=== PATIENT | female | born 1985 | race Caucasian/White ===

== ENCOUNTER 2019-04-12 14:39 | Inpatient (IN) ==
[2019-04-12 15:08] LABS: URINE SOURCE VOIDED
[2019-04-12 15:13] LABS: BILIRUBIN URINE NEGATIVE (NEGATIVE); BLOOD URINE NEGATIVE (NEGATIVE); GLUCOSE URINE NEGATIVE (NEGATIVE); KETONE URINE TRACE mg/dL (NEGATIVE); LEUKOCYTES URINE TRACE (NEGATIVE); NITRITE URINE NEGATIVE (NEGATIVE); PH URINE 6.5; PROTEIN URINE 1+(30 mg/dL) mg/dL (NEGATIVE); UROBILINOGEN URINE 4 mg/dL
[2019-04-12 15:14] LABS: CLARITY SL. CLOUDY (CLEAR); COLOR YELLOW
[2019-04-12] MEDS ORDERED: D5 LR 1,000 ML IV SCH (15:15)
[2019-04-12 15:43] LABS: HEMATOCRIT 33.1 % (37.0-47.0); HEMOGLOBIN 10.9 g/dL (12.0-16.0); RBC 3.92 XMIL (4.2-5.4)
[2019-04-12 15:44] LABS: BASO# 0.01 X1000 (0.0-0.2); BASO% 0.1 % (0.0-0.8); EOS# 0.09 X1000 (0.0-0.7); EOS% 0.9 % (0.0-10.0); IMM GRAN# 0.03 X1000 (0.0-0.04); IMM GRAN% 0.3 % (0.0-0.5); LYMPH# 2.11 X1000 (1.2-3.4); LYMPH% 22.2 % (20.5-51.1); MCH 27.8 PG (27-31); MCHC 32.9 g/dL (33-37); MCV 84.4 FL (81-99); MONO# 0.75 X1000 (0.11-0.59); MONO% 7.9 % (1.7-9.3); MPV 9.8 FL (7.4-10.4); NEUT# 6.51 X1000 (1.4-6.5); NEUT% 68.6 % (42.2-75.2); PLT 215 X1000 (130-400); RDW 15.8 % (11.5-14.5)
[2019-04-12] MEDS ORDERED: AMBIEN PO PRN (16:50)
[2019-04-12] MEDS ORDERED: LR 1,000 ML IV SCH (17:00)
[2019-04-12 17:16] LABS: UR AMPHETAMINES QUAL NONE DETECTED (NONE DETECT); UR BARBITUATES QUAL NONE DETECTED (NONE DETECT); UR BENZODIAZEPIN QUAL PRESUMPTIVE POSITIVE (NONE DETECT); UR CANNABINOIDS QUAL NONE DETECTED (NONE DETECT); UR COCAINE QUAL NONE DETECTED (NONE DETECT); UR METHADONE QUAL NONE DETECTED (NONE DETECT); UR METHAMPHETAMINE QUAL NONE DETECTED (NONE DETECT); UR OPIATES QUAL NONE DETECTED (NONE DETECT); UR OXYCODONE QUAL NONE DETECTED (NONE DETECT); UR PCP QUAL NONE DETECTED (NONE DETECT); UR PROPOXYPHENE QUAL NONE DETECTED (NONE DETECT); UR TCA QUAL NONE DETECTED (NONE DETECT)
[2019-04-12] MEDS ORDERED: BICITRA PO ONE (18:30)
[2019-04-12] MEDS ORDERED: TYLENOL PO ONE (18:35)
[2019-04-12] MEDS: ZOFRAN IV PRN (18:45)
[2019-04-13] MEDS: ZOFRAN IV PRN (02:25)
[2019-04-13] MEDS ORDERED: TYLENOL PO ONE (02:30)
[2019-04-13] MEDS ORDERED: XANAX PO ONE (03:27)
[2019-04-13] MEDS ORDERED: DIPRIVAN 1% ONE ×2 (03:33→06:52)
--- NOTE | 2019-04-13 03:57 | HISTORY AND PHYSICAL ---
HISTORY OF PRESENT ILLNESS: The patient is a 33-year-old female, G3, P1, A1 who will be 39 weeks gestation on 04/13/2019 . The patient has a previous vaginal delivery but had a 4th degree repair that she still has issues with and has requested for elective . Patient counseled about the risks of surgery including bleeding, infection, bowel or bladder injury. PAST MEDICAL HISTORY: Significant for ADD, anxiety, history of genital herpes no outbreak during this . PAST SURGICAL HISTORY: Significant for spinal fusion, dental surgery, D and C and right leg surgery. PAST OB HISTORY: G3, P1, A1, spontaneous vaginal delivery x1, spontaneous AB x1 that did require D and C. 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 FAMILY HISTORY: Significant for high blood pressure, leukemia, multiple myeloma and colon cancer. REVIEW OF SYSTEMS: All systems reviewed and noncontributory. MEDICATIONS: Iron, Xanax, tramadol, vitamin. ALLERGIES: Penicillin. PHYSICAL EXAM: Height 5 feet 9, weight 204-1/2 pounds, blood pressure 124/79, pulse of 72, respirations 18 and the heart rate 125. HEENT: Pupils equal, round, reactive to light and accommodation. Extraocular movements intact. Oropharynx clear. NECK: Supple. No thyromegaly. LUNGS: Clear to auscultation. HEART: Regular rate and rhythm. ABDOMEN: Gravid, nontender. EXTREMITIES: No clubbing, cyanosis, or edema noted. NEURO: Cranial nerves 2-12 grossly intact. Motor 5/5. ASSESSMENT/PLAN: 33-year-old female, G3, P1, A1 who will be 39 weeks gestation on 04/13/2019. Patient has requested elective section due to her history of traumatic delivery which included 4th degree repair. Patient counseled about the risks of surgery including bleeding, infection, bowel or bladder injury. Patient scheduled for surgery on 04/13/2019. cc: Vidal Graham III, MD
[2019-04-13] MEDS ORDERED: CLINDAMYCIN 900 MG/D5W 900 MG/50 ML IVPB IV ONE (05:30)
[2019-04-13] MEDS ORDERED: BICITRA PO ONE (06:00)
[2019-04-13] MEDS ORDERED: XYLOCAINE-MPF 2% ONE (06:40)
[2019-04-13] MEDS ORDERED: ROBINUL ONE (06:40)
[2019-04-13] MEDS ORDERED: PITOCIN ONE (06:40)
[2019-04-13] MEDS ORDERED: QUELICIN (DOSE) ONE (06:40)
[2019-04-13] MEDS ORDERED: SODIUM CHLORIDE 0.9% 10 ML ONE (06:50)
[2019-04-13] MEDS ORDERED: EPHEDRINE ONE (06:50)
[2019-04-13] MEDS ORDERED: FENTANYL ONE (06:54)
[2019-04-13] MEDS ORDERED: VERSED ONE (07:25)
[2019-04-13] MEDS ORDERED: ZOFRAN ONE (07:25)
[2019-04-13] MEDS ORDERED: MORPHINE ONE ×2 (07:29→07:32)
[2019-04-13] MEDS ORDERED: NEO-SYNEPHRINE ONE (07:42)
[2019-04-13] MEDS ORDERED: MYLICON PO PRN (07:59)
[2019-04-13] MEDS ORDERED: DEMEROL PO PRN ×2 (07:59)
[2019-04-13] MEDS ORDERED: NORCO-5 PO PRN (07:59)
[2019-04-13] MEDS ORDERED: HYDROXYZINE IM PRN (07:59)
[2019-04-13] MEDS ORDERED: ATARAX PO PRN (07:59)
[2019-04-13] MEDS ORDERED: PITOCIN 20 UNITS/NS 20 UNITS/1,000 ML IV.SOLN IV ONE (07:59)
[2019-04-13] MEDS ORDERED: PITOCIN IM PRN (07:59)
[2019-04-13] MEDS ORDERED: PHENERGAN IM PRN (07:59)
[2019-04-13] MEDS ORDERED: DULCOLAX PR PRN (07:59)
[2019-04-13] MEDS ORDERED: AMBIEN PO PRN (07:59)
[2019-04-13] MEDS ORDERED: BOOSTRIX VACCINE IM ONE (07:59)
[2019-04-13] MEDS ORDERED: DEMEROL IM PRN (07:59)
[2019-04-13] MEDS ORDERED: M-M-R II VACCINE SUBQ ONE (07:59)
[2019-04-13] MEDS: TORADOL IV SCH ×3 (08:30→20:14)
[2019-04-13] MEDS ORDERED: NARCAN IV PRN (08:30)
[2019-04-13] MEDS ORDERED: ZOFRAN IV PRN (08:30)
[2019-04-13] MEDS ORDERED: BENADRYL IV PRN (08:30)
[2019-04-13] MEDS: MORPHINE PCA IV PRN ×3 (08:42→20:13)
[2019-04-13] MEDS: XANAX PO PRN ×2 (09:29→18:55)
[2019-04-13] MEDS: MYLICON PO SCH ×4 (10:15→20:27)
--- NOTE | 2019-04-13 13:02 | OPERATIVE NOTE ---
PROCEDURE DATE: 04/13/2019 PREOPERATIVE DIAGNOSIS: Intrauterine (IUP) at 39 and 0/7th weeks with history of fourth degree midline episiotomy, who expressed desire for elective . POSTOPERATIVE DIAGNOSIS: Intrauterine (IUP) at 39 and 0/7th weeks with history of fourth degree midline episiotomy, who expressed desire for elective with operative delivery of a female 8 pounds 13 ounces. Apgars of 8 and 9 at 07:13 on 04/13/2019. PROCEDURE: Primary low-transverse . SURGEON: Vidal Graham III, MD BEHAVIORAL ANALYST: Esdras ANESTHESIA: General, Fox. FINDINGS: Normal-appearing uterus, tubes, and ovaries. COMPLICATIONS: None. ESTIMATED BLOOD LOSS: 600 mL. SPECIMENS REMOVED: None. DRAINS: Steiner to straight drain. COUNTS: All counts were correct x3. INDICATIONS: Patient is a 33-year-old white female, G3, P1, A1 at 39 weeks gestation and has a history of a traumatic 4th degree midline episiotomy with her first delivery and expressed desire for elective . Patient counseled about the risks of surgery including bleeding, infection, bowel or bladder injury. DESCRIPTION OF PROCEDURE: The patient was taken to Labor and Delivery OR. She had general anesthesia placed, the patient had has had a history of spinal fusion plus other back surgeries that would make it difficult to do a spinal anesthetic. Therefore, general was preferred at this time. General anesthesia was employed and the patient prepped and draped in a sterile fashion with placement of a Steiner catheter. A Pfannenstiel skin incision was made using a scalpel, this was carried down sharply to the fascia layer, small amber was made in the rectus fascia. Fascial incision was extended bilaterally by curved Guevara scissors and pickups, and then blunt and sharp dissection of the rectus fascia was performed superiorly and inferiorly. Rectus muscles were then divided midline, peritoneal layer was entered bluntly. The bladder reflection was created using Metzenbaum scissors. Bladder blade was placed into the abdominal cavity and then a transverse incision was made on the lower uterine segment using scalpel. Clear fluid was noted upon entry into the uterine cavity and then the hysterotomy incision was extended bilaterally by the surgeon's fingers. The head was then elevated toward the hysterotomy site and with gentle fundal pressure, the head was delivered atraumatically. Bulb suction of nose and mouth, then the rest the body was delivered atraumatically with gentle fundal pressure. Umbilical cord was clamped twice and cut. was handed to the nurse in attendance for delivery. Cord blood sample was obtained at this time. Placenta was then manually extracted. The uterus was then exteriorized. Wet lap was placed around the uterus. Dry lap was then used to curette the uterine cavity of clots and debris. Uterine incision was then closed using 0 chromic in a running, locking fashion. A small area of oozing was noted on the left corner, made hemostatic with a [id number] stitch of 0 chromic. At this point in time, the posterior cul-de-sac was then irrigated copiously. Then the uterus was replaced back into the abdominal cavity. The pericolic gutters were then cleansed using moist lap sponges. The uterine incision and bladder reflection were inspected and good hemostasis was noted. The peritoneal incision was then closed using a 2-0 chromic in a running fashion. The rectus muscle was then reapproximated using interrupted stitches of 2-0 chromic. The fascia layer was then closed using 0 PDS in a running fashion x1. Subcutaneous layer was irrigated copiously electrocautery was then used to obtain hemostasis. The skin was then reapproximated using bertha. Patient tolerated the procedure well, was taken to recovery room in stable condition. All counts were correct x3. cc: Vidal Graham III, MD
[2019-04-13] MEDS: PITOCIN 10 UNITS/NS 1,000 ML IV SCH ×2 (15:56→23:18)
[2019-04-13] MEDS: PERICOLACE PO SCH (20:15)
[2019-04-14] MEDS: ZOFRAN IV PRN (02:32)
[2019-04-14] MEDS: TORADOL IV SCH (02:35)
[2019-04-14] MEDS: MORPHINE PCA IV PRN (03:49)
[2019-04-14] MEDS: XANAX PO PRN ×4 (04:30→21:30)
[2019-04-14 05:48] LABS: BASO# 0.02 X1000 (0.0-0.2); BASO% 0.2 % (0.0-0.8); EOS# 0.17 X1000 (0.0-0.7); EOS% 2.1 % (0.0-10.0); HEMATOCRIT 28.9 % (37.0-47.0); HEMOGLOBIN 9.3 g/dL (12.0-16.0); IMM GRAN# 0.02 X1000 (0.0-0.04); IMM GRAN% 0.2 % (0.0-0.5); LYMPH# 1.31 X1000 (1.2-3.4); LYMPH% 16.1 % (20.5-51.1); MCH 27.6 PG (27-31); MCHC 32.2 g/dL (33-37); MCV 85.8 FL (81-99); MONO# 0.56 X1000 (0.11-0.59); MONO% 6.9 % (1.7-9.3); MPV 9.6 FL (7.4-10.4); NEUT# 6.05 X1000 (1.4-6.5); NEUT% 74.5 % (42.2-75.2); PLT 201 X1000 (130-400); RBC 3.37 XMIL (4.2-5.4); RDW 16.4 % (11.5-14.5); WBC 8.13 X1000 (4.8-10.8)
[2019-04-14] MEDS ORDERED: D/C PCA XX ONE (07:11)
[2019-04-14] MEDS ORDERED: SALINE LOCK IV FLUID XX ONE (07:13)
[2019-04-14] MEDS ORDERED: LR 1,000 ML IV SCH (07:59)
[2019-04-14] MEDS: PRECARE PO SCH (08:17)
[2019-04-14] MEDS: FERROUS SULFATE PO SCH (08:17)
[2019-04-14] MEDS: MYLICON PO SCH ×4 (08:17→21:29)
[2019-04-14] MEDS: NORCO-10 PO PRN ×4 (08:18→19:10)
[2019-04-14] MEDS: MOTRIN PO PRN ×2 (12:51→21:29)
[2019-04-14] MEDS: PERICOLACE PO SCH (21:29)
[2019-04-15] MEDS: XANAX PO PRN ×4 (02:36→21:23)
[2019-04-15] MEDS: NORCO-10 PO PRN ×6 (03:19→19:09)
[2019-04-15] MEDS: MOTRIN PO PRN ×2 (07:13→16:35)
[2019-04-15] MEDS: FERROUS SULFATE PO SCH (08:26)
[2019-04-15] MEDS: PRECARE PO SCH (08:26)
[2019-04-15] MEDS: MYLICON PO SCH ×4 (08:26→21:22)
[2019-04-15] MEDS: TRANDATE PO SCH ×2 (09:11→21:22)
[2019-04-15] MEDS: PERICOLACE PO SCH (21:22)
[2019-04-16] MEDS: NORCO-10 PO PRN ×2 (03:14→07:19)
[2019-04-16] MEDS: XANAX PO PRN ×2 (03:14→09:03)
[2019-04-16] MEDS: MOTRIN PO PRN (03:14)
[2019-04-16 08:19] VITALS: BP 158/95
--- NOTE | 2019-04-16 08:40 | DISCHARGE SUMMARY ---
ADMISSION DATE: 04/12/2019 DISCHARGE DATE: 04/16/2019 ADMISSION DIAGNOSIS: Intrauterine 39 weeks with history of prior 4th degree midline episiotomy and desires elective section. FINAL DIAGNOSIS: As above, with operative delivery of a female 8 pounds 13 ounces. Apgars 8 and 9 at 0713 on 04/13/2019. PROCEDURE: Primary low-transverse section. BRIEF HISTORY: The patient is a 33-year-old female, 3 para 1 1 who will be 39 weeks gestation on 04/13/2019. She has had a previous vaginal delivery, but had a 1/4 degree repair that she still has issues with and has requested elective section. Patient was counseled about the risks of surgery, including bleeding, infection, bowel or bladder injury. PAST MEDICAL HISTORY: Significant for attention deficit disorder, anxiety, history genital herpes with no outbreak during this . PAST SURGICAL HISTORY: Previous spinal fusion. Dental surgery. Dilatation and curettage. Right leg surgery. PAST OBSTETRICAL HISTORY: 3 para 1 1. Spontaneous vaginal delivery x1. Spontaneous x1. 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 FAMILY HISTORY: Significant for high blood pressure, leukemia, multiple myeloma and colon cancer. REVIEW OF SYSTEMS: All systems reviewed and noncontributory. MEDICATIONS: Iron. Xanax. Tramadol. vitamins. ALLERGIES: Penicillin. PHYSICAL EXAMINATION: Vital Signs: Height 5 feet 9 inches, weight 204.5 pounds. Blood pressure 124/79, pulse 72, respirations 18, heart rate was 125. HEENT: Pupils equal, round, reactive to light and accommodation. Extraocular movements intact. Oropharynx clear. Neck: Supple. No thyromegaly. Lungs: Clear to auscultation. Heart: Regular rate and rhythm. Abdomen: Gravid, nontender. Extremities: No clubbing, cyanosis, or edema noted. Neurologic: Cranial nerves 2-12 grossly intact. Motor 5/5. ASSESSMENT/PLAN: A 33-year-old female, 3 para 1 1 at 39 weeks gestation on 04/13/2019 has requested elective section due to a history of traumatic delivery which included 4th degree episiotomy repair. The patient was counseled about the risks of surgery, including bleeding, infection, bowel or bladder injury. The patient had a primary low transverse section with delivery of a female infant, 8 pounds 13 ounces with Apgars of 8 and 9 at 0713 on 04/13/2019. Patient's postoperative course was unremarkable. She was advanced on her diet and became ambulatory. Her postop hemoglobin was 9.3. Postop hematocrit was 28.9, and on postop day #3, she was ambulatory, had stable vital signs, afebrile and had positive flatus. It was felt at this time patient could be discharged home. She did have slightly elevated blood pressure and had been started on labetalol prior to her section and she was restarted on this medication. The patient will be discharged at this time. DISCHARGE INSTRUCTIONS: The patient was instructed on pelvic rest and lifting precautions for 6 weeks. Patient is to follow up on 04/20/2019 for postop check and staple removal. Patient also will have a blood pressure check at that time. She will be continued on labetalol 100 mg b.i.d. The patient is instructed to call for temperature greater than 101, heavy vaginal bleeding or severe abdominal pain. DISCHARGE MEDICATIONS: She has labetalol 100 mg b.i.d. already at home as well as iron sulfate 325 mg daily and she will continue with these medications. She was given a prescription for Osgood 10 dispensed 30 with no refills, Xanax 1 mg dispensed 60 with no refills, Colace 100 mg dispensed 30 with 2 refills and Motrin 800 mg, dispensed 30, also with 2 refills. cc: Vidal Graham III, MD
[2019-04-16] MEDS: FERROUS SULFATE PO SCH (08:59)
[2019-04-16] MEDS: PRECARE PO SCH (08:59)
[2019-04-16] MEDS: TRANDATE PO SCH (08:59)
[2019-04-16] MEDS: MYLICON PO SCH (08:59)
== END 2019-04-16 11:30 | disposition home or self-care (01) | DRG 787 ==
LOC: P.NBC 14:39 → P.LD 14:41
PROVIDERS: ADMIT Obstetrics & Gynecology; ATTEND Obstetrics & Gynecology
CPT/HCPCS: 59025; 80104; 80301; 80305; 81003; 85025; 86592; 86850; 86900; 86901; 90715; 94761; 94799; A9270; G0431; G0434; G0477; J0330; J1885; J2250; J2270; J2275; J2370; J2405; J2590; J3010; J7120; J7121; Q9974